=== PATIENT | female | born 2000 | race Caucasian/White ===

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

== ENCOUNTER 2018-12-07 06:59 | Day surgery (SDC) | payer OTHER ==
[~2018-12-07 06:59] MED LIST: CEFAZOLIN 2 GM/50 ML (PMX) 50 ML IVPB; SOD CHLORIDE 0.9% 1,000 ML IV
[2018-12-07] MEDS ORDERED: PROPOFOL 20 ML (09:18)
[2018-12-07] MEDS ORDERED: ROCURONIUM 50 MG INJ (09:18)
[2018-12-07] MEDS ORDERED: GLYCOPYRROLATE 0.4 MG INJ (09:18)
[2018-12-07] MEDS ORDERED: NEOSTIGMINE 3 MG/3 ML SYRINGE (09:18)
[2018-12-07] MEDS ORDERED: CEFAZOLIN 1 GM INJ (09:18)
[2018-12-07] MEDS ORDERED: ONDANSETRON 4 MG INJ (09:20)
[2018-12-07] MEDS ORDERED: MIDAZOLAM 1 MG/ML 2 ML INJ (09:20)
[2018-12-07] MEDS ORDERED: FENTAnyl 50 MCG/ML VIAL (09:20)
[2018-12-07] MEDS ORDERED: DEXAMETHASONE 4 MG/ML 5 ML INJ (09:20)
[2018-12-07] MEDS: BUPIVACAINE 0.25% (MPF) 30 ML INJ (09:25)
[2018-12-07] MEDS ORDERED: KETOROLAC 30 MG INJ (09:31)
[2018-12-07] MEDS ORDERED: IPRATROPIUM (NEB) 0.5 MG/2.5 ML AMP HHN (10:00)
[2018-12-07] MEDS ORDERED: MEPERIDINE 25 MG INJ IV (10:00)
[2018-12-07] MEDS ORDERED: EPHEDrine SULFATE 50 MG/5 ML SYG IV (10:00)
[2018-12-07] MEDS ORDERED: MIDAZOLAM 1 MG/ML 2 ML INJ IV (10:00)
[2018-12-07] MEDS ORDERED: HYDROmorphONE 1 MG/5 ML IV SYRINGE IV ×3 (10:00)
[2018-12-07] MEDS ORDERED: ALBUTEROL 0.083% (NEB) 2.5 MG/3 ML AMP HHN (10:00)
[2018-12-07] MEDS ORDERED: hydrALAzine 20 MG INJ IV (10:00)
[2018-12-07] MEDS ORDERED: TRIMETHOBENZAMIDE 100 MG/ML VIAL IM (10:00)
[2018-12-07] MEDS ORDERED: OXYCODONE/ACETAMINOPHEN (5/325) TAB PO ×2 (10:00)
[2018-12-07] MEDS ORDERED: DIPHENHYDRAMINE 50 MG INJ IV (10:00)
[2018-12-07] MEDS ORDERED: LABETALOL HCL 20MG INJ IV (10:00)
[2018-12-07] MEDS ORDERED: ONDANSETRON 4 MG INJ IV (10:00)
[2018-12-07] MEDS ORDERED: FENTAnyl 50 MCG/ML VIAL IV ×3 (10:00)
[2018-12-07] MEDS ORDERED: HYDROCODONE/APAP (5/325) TAB PO (10:30)
== END 2018-12-07 11:30 | disposition home or self-care (01) ==
LOC: SDS 06:59
DX: M67.432 Ganglion, left wrist (principal)
CPT/HCPCS: 25111; 88304

== ENCOUNTER 2019-04-01 22:22 | Emergency (ER) | payer OTHER ==
[2019-04-01] MEDS: FAMOTIDINE 20 MG TAB PO (23:00)
[2019-04-01] MEDS: predniSONE 20 MG TAB PO (23:00)
[2019-04-01] MEDS: DIPHENHYDRAMINE 50 MG INJ IM (23:01)
== END 2019-04-02 00:02 | disposition home or self-care (01) ==
LOC: FTE 04-02 00:02
DX: T78.1XXA Other adverse food reactions, not elsewhere classified, initial encounter (principal)
CPT/HCPCS: 96372; 99284-25